=== PATIENT | male | born 1940 | race Asian ===

== ENCOUNTER 2016-09-22 18:51 | Emergency (ER) | payer MEDICARE, OTHER ==
[~2016-09-22] VITALS: Ht 167.6 cm; Wt 88.6 kg
[~2016-09-22 18:51] MED LIST: ALLO300T2 PO; AMLO5TAB66 PO; ASPI-825 PO; ATOR20TA65 PO; BISO1TAB46 PO; COLC0.6T69 PO; LOSA100T8 PO; METF500T PO
[2016-09-22 20:22] LABS: GLUCOSE,POINT OF CARE 90 MG/DL (70-110)
[2016-09-22 22:39] VITALS: BP 125/87
== END 2016-09-22 23:02 | disposition home or self-care (01) ==
LOC: EMS 18:56
DX: S80.02XA Contusion of left knee, initial encounter (principal); E11.9 Type 2 diabetes mellitus without complications; I10 Essential (primary) hypertension; E78.00 Pure hypercholesterolemia, unspecified; Z79.82 Long term (current) use of aspirin; W19.XXXA Unspecified fall, initial encounter; Y93.89 Activity, other specified; Y92.89 Other specified places as the place of occurrence of the external cause; Y99.8 Other external cause status
CPT/HCPCS: 82962; 99284

== ENCOUNTER 2018-02-20 11:40 | Emergency (ER) | payer MEDICARE, OTHER ==
[~2018-02-20] VITALS: Ht 167.6 cm; Wt 100.0 kg
[~2018-02-20 11:40] MED LIST changes: +COLC0.6T68 PO; -COLC0.6T69 PO; +LOSA100T2 PO; -LOSA100T8 PO
[2018-02-20 11:53] LABS: GLUCOSE,POINT OF CARE 79 MG/DL (70-110)
[2018-02-20 11:57] VITALS: BP 152/77
[2018-02-20] MEDS ORDERED: PERTUSS(ACELL),DIPH,TET VAC/PF 0.5 ML VIAL IM ONE (12:30)
[2018-02-20] MEDS ORDERED: BACITRACIN 0.9 GM PACKET OINTMENT TP ONE (12:30)
[2018-02-20] MEDS ORDERED: AMOX TR/POT CLAV 875 MG/125 MG TABLET PO ONE (12:30)
== END 2018-02-20 12:53 | disposition home or self-care (01) ==
LOC: EMS 11:41
DX: S91.331A Puncture wound without foreign body, right foot, initial encounter (principal); I10 Essential (primary) hypertension; E11.9 Type 2 diabetes mellitus without complications; E78.00 Pure hypercholesterolemia, unspecified; Z79.82 Long term (current) use of aspirin; Z79.84 Long term (current) use of oral hypoglycemic drugs; W55.01XA Bitten by cat, initial encounter; Y93.89 Activity, other specified; Y92.89 Other specified places as the place of occurrence of the external cause; Y99.8 Other external cause status
CPT/HCPCS: 90471; 90715; 99283

== ENCOUNTER 2018-03-27 11:01 | Emergency (ER) | payer MEDICARE, OTHER ==
[~2018-03-27] VITALS: Ht 167.6 cm; Wt 90.9 kg
[~2018-03-27 11:01] MED LIST changes: -COLC0.6T68 PO
[2018-03-27 15:17] VITALS: BP 135/78
== END 2018-03-27 15:19 | disposition home or self-care (01) ==
LOC: EDUNIT# 11:01 → EDBD 11:09 → EMS 11:09
DX: S83.91XA Sprain of unspecified site of right knee, initial encounter (principal); M25.461 Effusion, right knee; M17.11 Unilateral primary osteoarthritis, right knee; E11.9 Type 2 diabetes mellitus without complications; E78.00 Pure hypercholesterolemia, unspecified; I10 Essential (primary) hypertension; Z98.890 Other specified postprocedural states; Z79.82 Long term (current) use of aspirin; Z79.84 Long term (current) use of oral hypoglycemic drugs; Z79.899 Other long term (current) drug therapy; W10.9XXA Fall (on) (from) unspecified stairs and steps, initial encounter; Y93.39 Activity, other involving climbing, rappelling and jumping off; Y92.89 Other specified places as the place of occurrence of the external cause; Y99.8 Other external cause status
CPT/HCPCS: 99284